=== PATIENT | male | born 1970 | race Caucasian/White ===

== ENCOUNTER 2019-03-09 00:11 | Observation (INO) | payer OTHER ==
[2019-03-09] MEDS ORDERED: diphenhydrAMINE 50 MG/ML VIAL ONE (00:39)
[2019-03-09] MEDS ORDERED: Famotidine/PF 20 mg/2ml Vial ONE ×2 (00:39→00:42)
[2019-03-09 00:40] LABS: #Eosinphils 0.2 thou/uL (0.0-0.7); #Lymphocytes 1.2 thou/uL (1.20-3.40); #Monocytes 0.8 thou/uL (0.11-0.59); #Neutrophils 12.1 thou/uL (1.40-6.50); %Basophils 0.2 % (0.0-1.0); %Eosinophils 1.2 % (0.0-10.0); %Lymphocytes 8.1 % (21.0-51.0); %Monocytes 5.4 % (0.0-10.0); %Neutrophils 85.2 % (42.0-75.0); Hemoglobin 14.3 g/dL (14.0-18.0); Mean Corpuscular HGB CONC 33.3 g/dL (32.0-36.0); Mean Corpuscular Hemoglobin 31.2 pg (27.0-31.0); Mean Corpuscular Volume 93.6 fL (78.0-98.0); Mean Platelet Volume 9.1 fL (7.4-10.4); Platelet Count 160 thou/uL (130-400); RBC Distribution Width 12.2 % (11.5-14.5); White Blood Cell (WBC) Count 14.2 thou/uL (4.8-10.8)
[2019-03-09 01:09] LABS: ALT (SGPT) 15 U/L (8-55); AST (SGOT) 14 U/L (5-34); Alkaline Phosphatase 72 U/L (40-150); Anion Gap 13 mmol/L (10-20); BUN (Urea Nitrogen) 20 mg/dL (8.9-20.6); Bilirubin, Total 0.4 mg/dL (0.2-1.2); Calc. Creatinine Clearance 0 mL/min (70-130); Calcium 8.6 mg/dL (7.8-10.44); Carbon Dioxide 24 mmol/L (22-29); Chloride 109 mmol/L (98-107); Estimated GFR-MDRD Greater than 90; Globulin 2.3 g/dL (2.4-3.5); Glucose 106 mg/dL (70-105); Potassium 4.8 mmol/L (3.5-5.1); Protein, Total 6.3 g/dL (6.0-8.3); Sodium 141 mmol/L (136-145)
[2019-03-09] MEDS ORDERED: Nitroglycerin 0.4 MG TAB 1 EACH ONE (01:10)
[2019-03-09 04:15] LABS: Troponin I Less than 0.010 ng/mL (< 0.028)
[2019-03-09 07:23] LABS: Troponin I Less than 0.010 ng/mL (< 0.028)
--- NOTE | 2019-03-09 08:27 | RAD ---
RADIOGRAPH CHEST 1 VIEW: HISTORY: A 48-year-old male with chest pain. FINDINGS: There are no air space densities, pulmonary edema, pneumothorax, or cardiomegaly. The lateral costop hrenic angles are sharp. IMPRESSION: No acute cardiopulmonary findings. jn [] POS: CET
--- NOTE | 2019-03-09 08:35 | CT ---
PRELIMINARY REPORT/[facility]/EMERGENCY AFTER HOURS PROCEDURE: EXAM: CT Angiography Chest With Contrast EXAM DATE/TIME: 03/09/2019 1:34 AM CLINICAL HISTORY: 48 years old, male; Chest pain; Abdominal pain; Epigastric; Patient HX: Er 2. 48 y/o m presents to ED C/O sudden onset of cp, located to L side of chest. At time of onset, PT states he was sitting down and watching television. Associated with diaphoresis, nausea, dyspnea TECHNIQUE: Imaging protocol: Axial computed tomographic angiography images of the chest with intravenous contras t using CT angiography protocol. Coronal and sagittal reformatted images were created and reviewed. 3D rendering: MIP reconstructed images were created and reviewed. COMPARISON: No relevant prior studies available. FINDINGS: Pulmonary arteries: Normal. No pulmonary emboli. Aorta: Normal. No aortic aneurysm. No aortic dissection. Lungs: Mild bilateral upper and lower lobe bronchial wall thickening, compatible with reactive airway disease or bronchitis. 4 mm noncalcified nodule within the lingula (series 2, image 67). Pleural space: Normal. No pneumothorax. No pleural effusion. Heart: Normal. No cardiomegaly. No pericardial effusion. Lymph nodes: Unremarkable. No enlarged lymph nodes. Bones/joints: Unremarkable. No acute fracture. Soft tissues: Unremarkable. IMPRESSION: 1. Mild bilateral upper and lower lobe bronchial wall thickening, compatible with reactive airway dis ease or bronchitis. 2. 4 mm noncalcified nodule within the lingula (series 2, image 67). EXAM: CT Angiography Abdomen With Contrast EXAM DATE/TIME: 03/09/2019 1:34 AM CLINICAL HISTORY: 48 years old, male; Chest pain; Abdominal pain; Epigastric; Patient HX: Er 2. 48 y/o m presents to ED C/O sudden onset of cp, located to L side of chest. At time of onset, PT states he was sitting down and watching television. Associated with diaphoresis, nausea, dyspnea TECHNIQUE: Imaging protocol: Axial computed tomographic angiography images of the abdomen with intravenous contr ast material. Coronal and sagittal reformatted images were created and reviewed. 3D rendering: MIP reconstructed images were created and reviewed. COMPARISON: No relevant prior studies available. FINDINGS: Lungs: Unremarkable. No consolidation. VASCULATURE: Aorta: No aortic aneurysm. No aortic dissection. Celiac trunk and mesenteric arteries: No occlusion or significant stenosis. Renal arteries: No occlusion or significant stenosis. ABDOMEN: Liver: Normal. No mass. Gallbladder and bile ducts: Normal. No calcified stones. No ductal dilation. Pancreas: Normal. No ductal dilation. Spleen: Normal. No splenomegaly. Adrenals: Normal. No mass. Kidneys and ureters: Normal. No hydronephrosis. Stomach and bowel: Surgical changes of prior gastric bypass, without acute complications. Appendix: The appendix is normal. Intraperitoneal space: Unremarkable. No free air. No significant fluid collection. Bones/joints: L2-L5 posterior fusion and decompressive changes, without acute complications. Minimal levoscoliosis of the lumbar spine. Soft tissues: Unremarkable. Lymph nodes: Unremarkable. No enlarged lymph nodes. IMPRESSION: No acute abdominal or pelvic abnormality. Thank you for allowing us to participate in the care of your patient. Dictated and Authenticated by: Camacho Walker MD 03/09/2019 2:18 AM Central Time ([place] & [place]) FINAL REPORT CT ANGIOGRAM CHEST WITH 3D RENDERING CT ANGIOGRAM ABDOMEN WITH 3D RENDERING: Date: 03/09/19 IMPRESSION: No evidence of aortic aneurysm or dissection. Postop changes noted involving the stomach. Bilateral l ower lobe bronchial wall thickening, nonspecific, possibly related to some chronic airway disease. [place] rgical clips around the region of the gallbladder. 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 Extensive postop changes of the lumbar spine with laminectomy and pedicle screw placement. No evidence for renal calculus or acute obstruction. Report in agreement with preliminary report given on-call by [facility]. POS: OFF
[2019-03-09] MEDS ORDERED: Iopamidol 370 76% 100 ML VIAL ONE (08:51)
[2019-03-09] MEDS ORDERED: Acetaminophen 325 MG TAB PO PRN (09:47)
[2019-03-09] MEDS ORDERED: Senokot S 8.6-50 MG TAB PO PRN (09:47)
[2019-03-09] MEDS ORDERED: Guaifenesin DM 100-10/5 ML UDCUP PO PRN (09:47)
[2019-03-09] MEDS ORDERED: Nitroglycerin 0.4 MG TAB (25 Tab Bottle) PO PRN (09:47)
[2019-03-09] MEDS ORDERED: Bisacodyl 10 MG SUPP PR PRN (09:47)
[2019-03-09] MEDS ORDERED: Sodium Chloride 0.9% 1,000 ML IV SCH (13:00)
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
[2019-03-09 15:11] VITALS: BMI 33.3
[2019-03-09 15:14] VITALS: TEMP 97.6
--- NOTE | 2019-03-09 15:33 | NM ---
Radionucleotide stress only myocardial perfusion scan with CT attenuation correction and SPECT imagin g Left ventricular wall motion evaluation and ejection fraction HISTORY: Chest pain. FINDINGS: Adenosine protocol. There is homogeneous uptake of radiotracer throughout the left ventricu lar myocardium. No focal perfusion defect or reversibility. QGS analysis of gated SPECT images shows no focal wall motion abnormality. Ejection fraction calculated at 74% IMPRESSION: Normal myocardial perfusion scan. Normal LVEF.
[2019-03-09 15:39] VITALS: BP 146/72
[2019-03-09] MEDS ORDERED: Metoprolol Tartrate 25 MG TAB PO SCH (21:00)
[2019-03-09] MEDS ORDERED: Famotidine 20 MG TAB PO SCH (21:00)
[2019-03-10] MEDS ORDERED: Enoxaparin Sodium 40 MG/0.4 ML SYRINGE SC SCH (09:00)
[2019-03-10] MEDS ORDERED: Aspirin 325 mg Enteric Coated Tablet PO SCH (09:00)
--- NOTE | 2019-03-11 17:01 | EKG ---
Test Reason : Blood Pressure : / mmHG Vent. Rate : 055 BPM Atrial Rate : 055 BPM P-R Int : 176 ms QRS Dur : 084 ms QT Int : 446 ms P-R-T Axes : 056 080 069 degrees QTc Int : 426 ms Sinus bradycardia Possible Left atrial enlargement Borderline ECG Hyperacute T waves V2-V4 Confirmed by NIKI CORDON DO ([id number]), newspaper or periodical editor YULISA RIBERA ([id number]) on 03/11/2019 5:00:58 PM Referred By: Confirmed By:NIKI CORDON DO
--- NOTE | 2019-03-11 17:01 | EKG ---
Test Reason : Blood Pressure : / mmHG Vent. Rate : 063 BPM Atrial Rate : 063 BPM P-R Int : 138 ms QRS Dur : 084 ms QT Int : 426 ms P-R-T Axes : 061 084 065 degrees QTc Int : 435 ms Normal sinus rhythm Normal ECG Hyperacute T waves V2-V4 Confirmed by NIKI CORDON DO ([id number]), manuscript editor YULISA RIBERA ([id number]) on 03/11/2019 5:01:25 PM Referred By: Confirmed By:NIKI CORDON DO
== END 2019-03-09 17:45 ==
LOC: ERS 00:11 → EEVIPCON 00:11 → ERHOLD 04:35 → 2SW 04:38
PROVIDERS: ADMIT Hospitalist; ATTEND Hospitalist
DX: R07.89 Other chest pain (principal); R91.1 Solitary pulmonary nodule; I10 Essential (primary) hypertension; D17.79 Benign lipomatous neoplasm of other sites; E66.9 Obesity, unspecified; Z68.33 Body mass index [BMI] 33.0-33.9, adult; Z79.899 Other long term (current) drug therapy; Z88.5 Allergy status to narcotic agent; Z98.84 Bariatric surgery status; Z98.890 Other specified postprocedural states
CPT/HCPCS: 36415; 71045; 71275; 78452; 80053; 83690; 84484; 85025; 93005; 93017; 96361; 96374; 96375; A9500; G0378; J0153; J1200; Q9967; S0028

== ENCOUNTER 2019-11-13 22:02 | Emergency (ER) | payer OTHER ==
[2019-11-13 23:17] LABS: Hemoglobin 12.8 g/dL (14.0-18.0); Mean Corpuscular HGB CONC 32.8 g/dL (32.0-36.0); Mean Corpuscular Hemoglobin 31.1 pg (27.0-31.0); Mean Corpuscular Volume 94.8 fL (78.0-98.0); Platelet Count 162 thou/uL (130-400); RBC Distribution Width 12.1 % (11.5-14.5); Red Blood Cell (RBC) Count 4.11 mill/uL (4.70-6.10); White Blood Cell (WBC) Count 5.6 thou/uL (4.8-10.8)
[2019-11-13 23:18] LABS: #Eosinphils 0.1 thou/uL (0.0-0.7); #Lymphocytes 1.1 thou/uL (1.20-3.40); #Monocytes 0.5 thou/uL (0.11-0.59); #Neutrophils 3.9 thou/uL (1.40-6.50); %Basophils 0.5 % (0.0-1.0); %Eosinophils 2.4 % (0.0-10.0); %Lymphocytes 18.8 % (21.0-51.0); %Monocytes 9.2 % (0.0-10.0); %Neutrophils 69.2 % (42.0-75.0); Mean Platelet Volume 9.7 fL (7.4-10.4)
[2019-11-13 23:47] LABS: ALT (SGPT) 23 U/L (8-55); AST (SGOT) 21 U/L (5-34); Albumin 4.2 g/dL (3.5-5.0); Alkaline Phosphatase 74 U/L (40-110); Anion Gap 12 mmol/L (10-20); BUN (Urea Nitrogen) 17 mg/dL (8.9-20.6); Bilirubin, Total 0.3 mg/dL (0.2-1.2); Calc. Creatinine Clearance 0 mL/min (70-130); Calcium 8.7 mg/dL (7.8-10.44); Carbon Dioxide 26 mmol/L (22-29); Chloride 106 mmol/L (98-107); Estimated GFR-MDRD Greater than 90; Globulin 2.6 g/dL (2.4-3.5); Glucose 86 mg/dL (70-105); Potassium 4.2 mmol/L (3.5-5.1); Protein, Total 6.8 g/dL (6.0-8.3); Sodium 140 mmol/L (136-145)
[2019-11-14] MEDS ORDERED: Acetaminophen 500 MG TAB ONE (03:16)
--- NOTE | 2019-11-14 07:15 | RAD ---
CHEST 1 VIEW: Date: 11/13/2019 INDICATION: Bilateral lower extremity pain and swelling with cough. COMPARISON: Prior exam dated 03/09/2019. FINDINGS: Lungs are clear. Heart size is normal. No acute osseous abnormality is evident. IMPRESSION: No acute cardiopulmonary abnormality. POS: BH
--- NOTE | 2019-11-14 07:17 | ULT ---
BILATERAL LOWER EXTREMITY DOPPLER VENOUS ULTRASOUND: Date: 11/13/2019 INDICATION: Bilateral lower extremity pain and edema for 2 months with history of neck surgery and left hip repla cement. TECHNIQUE: Dave scale, color Doppler, and vascular duplex with spectral analysis was performed of the deep venou s structures of the bilateral lower extremities. The common femoral vein, superficial femoral vein, p roximal greater saphenous vein, proximal greater profunda vein, popliteal, and posterior tibial veins were assessed. FINDINGS: Normal compression, flow, and augmentation was seen within the deep venous structures of both lower e xtremities. IMPRESSION: No evidence of deep venous thrombosis within both lower extremities. POS: OFF
== END 2019-11-14 00:50 ==
LOC: ERS 22:02
DX: L03.316 Cellulitis of umbilicus (principal); L03.115 Cellulitis of right lower limb; I10 Essential (primary) hypertension; Z79.899 Other long term (current) drug therapy
CPT/HCPCS: 36415; 71045; 80053; 83880; 84484; 85025; 93005; 93970